=== PATIENT | female | born 1970 | race Caucasian/White ===

== ENCOUNTER 2017-09-18 07:41 | Emergency (ER) | payer BC ==
--- NOTE | 2017-09-18 08:02 | UC ---
Throat Pain/Nasal Bhavin HPI - HPI Summary HPI Summary: pt states became ill about a week ago with the flu, now that sinus congestion is suddenly much worse with increased congestion, green drainage and facial pain /pressure. no fever - History of Current Complaint Stated Complaint: sinus Time Seen by Provider: 09/18/17 07:47 Hx Obtained From: Patient Hx Last Menstrual Period: 11/30/13 ?: No Onset/Duration: Gradual Onset Severity: Moderate Cough: Productive Associated Signs & Symptoms: Positive: Sinus Discomfort, Nasal Discharge. Negative: Wheezing, Fever - Epiglottits Risk Factors Epiglottis Risk Factors: Negative - Allergies/Home Medications Allergies/Adverse Reactions: Allergies Allergy/AdvReac Type Severity Reaction Status Date / Time No Known Allergies Allergy Verified 08/14/13 08:26 Home Medications: Home Medications Dm/Acetaminophen/Doxylamine [Night Time Cold & Flu Liquid] 30 ml PO PRN [History] PMH/Surg Hx/FS Hx/Imm Hx Endocrine History: Thyroid Disease - Surgical History Surgical History: None - Family History Known Family History: Positive: Diabetes - Social History Occupation: Employed Full-time Lives: With Family Alcohol Use: None Substance Use Type: None - Immunization History Vaccination Up to Date: Yes Review of Systems Constitutional: Negative Skin: Negative Eyes: Negative ENT: Nasal Discharge, Sinus Congestion, Sinus Pain/Tenderness Respiratory: Cough Cardiovascular: Negative Gastrointestinal: Negative Genitourinary: Negative Motor: Negative Neurovascular: Negative Musculoskeletal: Negative Neurological: Negative Psychological: Negative Is Patient Immunocompromised?: No All Other Systems Reviewed And Are Negative: Yes Physical Exam Triage Information Reviewed: Yes Appearance: Well-Appearing Vital Signs Reviewed: Yes Eyes: Positive: Conjunctiva Clear ENT: Positive: Pharynx normal, Nasal congestion, Nasal drainage - green, TMs normal, Sinus tenderness Neck: Positive: Supple, Nontender, No Lymphadenopathy Respiratory: Positive: Lungs clear, Normal breath sounds, No respiratory distress Cardiovascular: Positive: RRR, No Murmur, Pulses Normal Abdomen Description: Positive: Nontender, No Organomegaly, Soft Bowel Sounds: Positive: Present Musculoskeletal: Positive: ROM Intact Neurological: Positive: Alert Psychological: Positive: Age Appropriate Behavior Skin Exam: Normal Throat Pain/Nasal Course/Dx - Course Course Of Treatment: hx, exam c/w sinusitis, will tx with augmentin. otc flonase advised - Differential Dx/Diagnosis Provider Diagnoses: Sinusitis. Cough. Discharge - Discharge Plan Condition: Stable Disposition: HOME Prescriptions: Amoxicillin/Clavulanate TAB* [Augmentin TAB 875*] 875 mg PO BID 10 Days #20 tab Referrals: Margaret Frey MD [Medical Doctor] - Additional Instructions: USE FLONASE OVER THE COUNTER PER LABEL.
[2017-09-18 08:05] VITALS: BP 104/66
== END 2017-09-18 08:12 | disposition home or self-care (01) ==
LOC: UCCORT 07:41
DX: J32.9 Chronic sinusitis, unspecified (principal); R05 Cough
CPT/HCPCS: 99212; G0463